=== PATIENT | male | born 1975 | race Caucasian/White ===

== ENCOUNTER 2018-05-07 15:11 | Outpatient (CLI) | payer BC ==
--- NOTE | 2018-05-07 16:37 | RAD ---
LUMBAR SPINE SERIES WITH FLEXION AND EXTENSION: HISTORY: Low back pain. FINDINGS: The vertebral bodies are normal in hg. Degenerative osteophytes are seen along the course of the spi ne. There is mild disk narrowing at L2-L3 with minimal retrolisthesis at this level. There is also disk narrowing at L5-S1. No abnormal motion in flexion or extension. IMPRESSION: Mild arthritic changes of the spine. POS: [facility]
--- NOTE | 2018-05-07 16:37 | RAD ---
3 VIEWS SACROILIAC JOINTS: Date: 05/07/18 HISTORY: Pain. FINDINGS: Sacral ala preserved. Sacroiliac joints are patent and symmetric. No evidence of fractures in the vis ualized osseous structures. IMPRESSION: Unremarkable 3 views sacroiliac joints. POS: [facility]
== END 2018-05-07 15:12 | disposition home or self-care (01) ==
LOC: RAD 15:11
PROVIDERS: ATTEND Internal Medicine Rheumatology
DX: M54.5 Low back pain (principal); M25.50 Pain in unspecified joint; M47.816 Spondylosis without myelopathy or radiculopathy, lumbar region; Z68.30 Body mass index [BMI] 30.0-30.9, adult
CPT/HCPCS: 72100; 72202